=== PATIENT | male | born 1990 | race Caucasian/White ===

== ENCOUNTER 2020-12-10 09:07 | Emergency (ER) | payer MEDICAID ==
[~2020-12-10] VITALS: Ht 193 cm; Wt 110.1 kg
--- NOTE | 2020-12-10 10:06 | NUR ---
[employer]: PT AMBULATORY TO ROOM FROM LOBBY AT THIS TIME
--- NOTE | 2020-12-10 10:22 | NUR ---
DR BRADEN AT BEDSIDE, PT ASSESSMENT AND POC REV, QUESTIONS ANSWERED.
[2020-12-10 10:47] LABS: MICROSCOPIC INDICATED
[2020-12-10 11:30] VITALS: BP 125/64
--- NOTE | 2020-12-10 11:33 | NUR ---
ALL TESTS RESULTED AND CHART UP FOR RECHECK. PT AWARE, VSS AND NAD NOTED
[2020-12-10 11:42] LABS: BASOPHILS % (AUTO) 1 % (0-1); EOSINOPHILS % (AUTO) 2 % (1-7); LYMPHOCYTES % (AUTO) 25 % (22-44); MEAN CORPUSCULAR HEMOGLOBIN 29.6 pg (27.5-34.5); MEAN CORPUSCULAR HGB CONC 33.8 g/dL (33.2-36.2); MEAN PLATELET VOLUME 6.9 fL (7.4-10.4); MONOCYTES % (AUTO) 10 % (2-9); NEUTROPHILS % (AUTO) 62 % (42-75); PLATELET COUNT 325 x10^3/uL (130-400); RED BLOOD COUNT 4.73 x10^6/uL (4.38-5.82); RED CELL DISTRIBUTION WIDTH 13.1 % (9.4-14.8)
[2020-12-10 11:48] LABS: ALBUMIN 4.1 g/dL (3.4-5.0); CALCIUM 9.1 mg/dL (8.5-10.1); CHLORIDE 107 mmol/L (98-107); CREATININE 1.04 mg/dL (0.7-1.3); MD NO
[2020-12-10 11:54] LABS: ANION GAP 7 mmol/L (5-15)
--- NOTE | 2020-12-10 12:01 | NUR ---
Patient/Caregiver given discharge instructions and they have confirmed that they understand the instructions. Patient ambulatory with steady gait.
== END 2020-12-10 12:02 | disposition home or self-care (01) ==
LOC: ED 11:50
DX: M79.662 Pain in left lower leg (principal); R10.2 Pelvic and perineal pain; N50.811 Right testicular pain; N50.812 Left testicular pain
CPT/HCPCS: 36415; 76870; 80048; 81001; 82040; 85025; 87491; 87591; 99285